=== PATIENT | female | born 1975 | race Caucasian/White ===

== ENCOUNTER → 2017-01-17 | Outpatient (CLI) | payer OTHER ==
[2017-01-17 13:40] VITALS: BP 120/61; PULSE 71; RESP 15; TEMP 97.4; BMI 38.6
--- NOTE | 2017-01-17 15:43 | FL ---
EXAMINATION TYPE: FL barium swallow DATE OF EXAM: 01/17/2017 LAP BANDING LIMITED ESOPHAGRAM: CLINICAL HISTORY: R13.10 DYSPHAGIA TECHNIQUE: Limited esophagram is performed utilizing 2-3 oz of barium. COMPARISON: None. FINDINGS: Pre-procedure public health advisor image shows lap band in satisfactory position in proximal stomach ju st below the gastroesophageal junction. The patient then drank oral contrast. There is good flow of c ontrast along the course of the esophagus. There is good flow of contrast along the course of the la p band, there is no evidence of contrast extravasation to suggest leak. There is no significant romie mike prolapse appreciated. IMPRESSION: No evidence of prolapse or significant obstruction.
--- NOTE | 2017-01-17 16:05 | P.HPBAR ---
Bariatric H&P - History & Physicial H&P Date: 01/17/17 History & Physicial: Visit/CC: band issues, feels as if food getting stuck though band empty Patient initial contact: Initial weight: 113.171 kg Initial weight in pounds: 249.50 Height: 5 ft 6 in Initial BMI: 40.2 Last weight: Current weight: 108.635 kg Current weight in pounds: 239.50 Current BMI: 38.6 Turner body weight (based on NIH guidelines): 58.967 kg Excess body weight loss: 8.3% The patient is a 42 year-old F who presents for Bariatric Assessment. Patient has some mild GERD. She states that she feels food is getting stuck. Past Medical History Past Medical History: Thyroid Disorder Additional Past Medical History / Comment(s): dizziness, "brain pressure/ swelling", vertigo, headaches. Patient currently seeing a neurologist, states she "constantlly lives in a fog." hypothyroidism History of Any Multi-Drug Resistant Organisms: None Reported Past Surgical History: Bariatric Surgery, Section, Orthopedic Surgery Additional Past Surgical History / Comment(s): Left foot sx for plantar fascitis , x2, lapband 2007 Past Anesthesia/Blood Transfusion Reactions: Motion Sickness, Postoperative Nausea & Vomiting (PONV) Additional Past Anesthesia/Blood Transfusion Reaction / Comm: no history of blood transfusion to date Past Psychological History: No Psychological Hx Reported Smoking Status: Never smoker Past Alcohol Use History: Rare Past Drug Use History: None Reported - Past Family History Mother Family Medical History: Cancer Additional Family Medical History / Comment(s): breast cancer dx at age 52, Surgical - Exam Vital Signs Temp Pulse Resp BP 97.4 F L 71 15 120/61 01/17/17 12:54 01/17/17 12:54 01/17/17 12:54 01/17/17 12:54 - General well developed, no distress - Eyes PERRL - ENT normal pinna - Neck no masses - Respiratory normal expansion - Cardiovascular Rhythm: regular - Abdomen Abdomen: soft, non tender Bariatric Assessment & Plan Plan: The patient's LAP-BAND was emptied. The patient was scheduled for an esophagram. Esophagram was performed which shows no evidence of obstruction or prolapse. The patient follow-up in 1 month. Bariatric Checklist Checklist: Plan: Checklist: EGD: 1. Hiatal hernia: 2. H. Pylori: HgbA1c: Vitamin D: Smoking: Never smoker Primary care physician referral: Psychiatry clearance: Cardiology clearance: Sleep study: Diet journal: VTE risk score: VTE risk level: Rehab needs at discharge:
== END ==
LOC: BARWHC3 12:38
PROVIDERS: ATTEND Surgery
DX: Z48.815 Encounter for surgical aftercare following surgery on the digestive system (principal); Z98.84 Bariatric surgery status; R13.10 Dysphagia, unspecified
CPT/HCPCS: 74220; 99203